=== PATIENT | male | born 1970 | race Two or more races ===

== ENCOUNTER 2022-07-02 23:00 | Inpatient (IN) | payer OTHER ==
[~2022-07-02] VITALS: Ht 170.2 cm; Wt 79.4 kg
[2022-07-05] MEDS ORDERED: TOPROL XL25 M1 PO (09:12)
== END 2022-07-05 11:48 | disposition home or self-care (01) | DRG 310 ==
LOC: ER 23:00 → ICU-2 07-03 13:57 → MEDJ 07-03 13:57
PROVIDERS: ADMIT Internal Medicine; ATTEND Internal Medicine
PROC: B246ZZZ Ultrasonography of Right and Left Heart (ICD-10-PCS; principal; 2022-07-03)
PROC: 4A12X4Z Monitoring of Cardiac Electrical Activity, External Approach (ICD-10-PCS; 2022-07-03)
DX: I47.1 Supraventricular tachycardia (principal); R77.8 Other specified abnormalities of plasma proteins; Z20.822 Contact with and (suspected) exposure to COVID-19

== ENCOUNTER 2022-07-25 07:08 | Outpatient (CLI) | payer OTHER ==
[~2022-07-25 07:08] MED LIST: TOPROL XL25 M1 PO
== END 2022-07-25 07:15 | disposition home or self-care (01) ==
LOC: NUCLEAR 07:08
PROVIDERS: ATTEND Internal Medicine
DX: I10 Essential (primary) hypertension (principal); R07.9 Chest pain, unspecified; Z91.013 Allergy to seafood
CPT/HCPCS: 78452; 93017; A9500